=== PATIENT | female | born 1990 | race Caucasian/White ===

== ENCOUNTER 2019-03-30 19:30 | Emergency (ER) | payer OTHER ==
[2019-03-30 19:36] VITALS: BP 128/89; PULSE 81; TEMP 98.4; BMI 27.4
--- NOTE | 2019-03-30 19:38 | PDOC ---
Rapid Medical Evaluation Chief Complaint: Pain Time Seen by Provider: 03/30/19 19:33 Medical Evaluation: 03/30/19 19:33 I have performed a brief in-person evaluation of this patient. The patient presents with a chief complaint of: sent from [facility]/ lower abd pain with radiation- started on and off 2 mos ago, PMD - UTI negative. No relief with 200mg ibuprofen. LMP= NONE X 3 MOS- NORPLANT PLACED Pertinent physical exam findings: I have ordered the following: US pelvis The patient will proceed to the ED for further evaluation. 03/30/19 19:38 Discharge Disposition - Diagnosis Abdominal pain - Referrals - Patient Instructions - Post Discharge Activity
--- NOTE | 2019-03-30 23:04 | PDOC ---
History of Present Illness - General Chief Complaint: Pain Stated Complaint: LOWER STOMACH PAIN Time Seen by Provider: 03/30/19 19:33 - History of Present Illness Initial Comments: 03/30/19 23:04 Ms. Vicente is a 28 yo female w/ no pmh who presents for evaluation of 2 year history of intermittent lower abdominal pain. Patient reports symptoms were mild and unrelated to anything over this time until becoming worse over the last 2 months. Patient reports symptoms have increased since then and have become particularly bad in the last 2 weeks. Patient changed from an IUD to norplant approximately 3 months ago and reports she had 1x of heavier bleeding at that time. Patient was evaluated by PCP 2 weeks ago who tested her for suspected UTI w/ negative result. Patient cannot relate symptoms to anything. Of note, patient's most recent partner of the last 3 months tested positive for gonorrhea recently and she requests testing for this and HIV as well. Does not believe she is at this time. The patient denies chest pain, shortness of breath, headache and dizziness. Denies fever, chills, nausea, vomit, diarrhea and constipation. Denies dysuria, frequency, urgency and hematuria. Past History - Past Medical History Allergies/Adverse Reactions: Allergies Allergy/AdvReac Type Severity Reaction Status Date / Time No Known Allergies Allergy Verified 03/30/19 19:35 Home Medications: Ambulatory Orders NK [No Known Home Medication] 03/30/19 COPD: No - Suicide/Smoking/Psychosocial Hx Smoking History: Never smoked Review of Systems - Review of Systems Comments:: 03/30/19 23:05 GENERAL/CONSTITUTIONAL: No fever or chills. No weakness. HEAD, EYES, EARS, NOSE AND THROAT: No change in vision. No ear pain or discharge. No sore throat. CARDIOVASCULAR: No chest pain or shortness of breath RESPIRATORY: No cough, wheezing, or hemoptysis. GASTROINTESTINAL: +Lower abdominal pain MIRYAM. No nausea, vomiting, diarrhea or constipation. GENITOURINARY: No dysuria, frequency, or change in urination. MUSCULOSKELETAL: No joint or muscle swelling or pain. No neck or back pain. SKIN: No rash NEUROLOGIC: No headache, vertigo, loss of consciousness, or change in strength/ sensation. ENDOCRINE: No increased thirst. No abnormal weight change HEMATOLOGIC/LYMPHATIC: No anemia, easy bleeding, or history of blood clots. ALLERGIC/IMMUNOLOGIC: No hives or skin allergy. *Physical Exam - Vital Signs Last Vital Signs Temp Pulse Resp BP Pulse Ox 98.4 F 81 18 128/89 99 03/30/19 19:33 03/30/19 19:33 03/30/19 19:33 03/30/19 19:33 03/30/19 19:33 - Physical Exam Comments: 03/30/19 23:05 GENERAL: Awake, alert, and fully oriented, in no acute distress HEAD: No signs of trauma, normocephalic, atraumatic EYES: PERRLA, EOMI, sclera anicteric, conjunctiva clear ENT: Auricles normal inspection, hearing grossly normal, nares patent, oropharynx clear without exudates. Moist mucosa NECK: Normal ROM, supple, no lymphadenopathy, JVD, or masses LUNGS: No distress, speaks full sentences, clear to auscultation bilaterally HEART: Regular rate and rhythm, normal S1 and S2, no murmurs, rubs or gallops, peripheral pulses normal and equal bilaterally. ABDOMEN: +MIRYAM lower abdominal TTP. Soft, normoactive bowel sounds. No guarding, no rebound. No masses EXTREMITIES: Normal inspection, Normal range of motion, no edema. No clubbing or cyanosis. NEUROLOGICAL: Cranial nerves II through XII grossly intact. Normal speech, normal gait, no focal sensorimotor deficits SKIN: Warm, Dry, normal turgor, no rashes or lesions noted. VAGINAL: +No CMT, no adnexal tenderness. No blood noted in vaginal vault. Patient noted to have pelvic wall tenderness. ED Treatment Course - LABORATORY CBC & Chemistry Diagram: 03/31/19 00:30 03/31/19 00:30 Medical Decision Making - Medical Decision Making 03/31/19 01:55 Ms. Tomas is a 28 yo female w/ pmh as described who presents for evaluation of lower abdominal pain c/w endometritis vs. appendicitis vs. other acute abdominal process. Patient evaluation started with laboratory evaluation and TVUS / CT Abd/Pelvis for further evaluation. Patient signed out to Dr. Chamberlain for further evaluation. *DC/Admit/Observation/Transfer Diagnosis at time of Disposition: Abdominal pain Qualifiers: Abdominal location: unspecified location Qualified Code(s): R10.9 - Unspecified abdominal pain - Referrals Referrals: Heike Bowling MD [Primary Care Provider] - - Patient Instructions - Post Discharge Activity
[2019-03-30 23:17] LABS: HCG,QUALITATIVE URINE Negative
[2019-03-30 23:18] LABS: EPI CELLS 5.1 /HPF (0-5/HPF); PH,URINE 5.5 (5.0-8.0); URINE APPEARANCE CLEAR; URINE BACTERIA 110.4 /hpf (NEGATIVE); URINE BILIRUBIN NEGATIVE (NEGATIVE); URINE CASTS 5 /lpf (0-8); URINE COLOR YELLOW; URINE GLUCOSE (UA) NEGATIVE (NEGATIVE); URINE KETONE TRACE (NEGATIVE); URINE LEUK ESTERASE TRACE (NEGATIVE); URINE NITRITE NEGATIVE (NEGATIVE); URINE PROTEIN NEGATIVE (NEGATIVE); URINE RBC 1 /hpf (0-4); URINE UROBILINOGEN 0.2 mg/dL (0.2-1.0); URINE WBC 9 /hpf (0-5)
--- NOTE | 2019-03-31 00:47 | PDOC ---
Documentation entered by Tung Arias SCRIBE, acting as scribe for Triny Francis MD. Triny Francis MD: This documentation has been prepared by the Hugo owens Daniel, SCRIBE, under my direction and personally reviewed by me in its entirety. I confirm that the documentation accurately reflects all work, treatment, procedures, and medical decision making performed by me. Attending Attestation - Resident Resident Name: Oswaldo Man - ED Attending Attestation I have performed the following: I have examined & evaluated the patient, The case was reviewed & discussed with the resident, I agree w/resident's findings & plan, Exceptions are as noted - HPI HPI: 03/31/19 00:22 The patient is a 28 year old female with no past medical history here today for evaluation of abdominal pain. The patient reports that she has had 2 years of intermittent lower abdominal pain which started to get worse in the past 3 months and has gotten even worse in the past 2 weeks. She reports that she switched from an IUD to norplant 3 months ago and noticed her worsening abdominal pain around that time. She denies vaginal bleeding or DC, states she has not had her period in 3 months 2/2 norplant. Reports her current partner was just diagnosed with gonorrhea. Patient denies headache, lightheadedness. Denies fever, chills. Denies chest pain, shortness of breath. Denies nausea, vomiting, diarrhea. Allergies: NKA PCP: Nargis Lora - Physicial Exam PE: 03/31/19 00:47 agree with resident exam - Medical Decision Making 03/31/19 00:50 28yo F presents to the ED with progressive lower abd pain x2 years, much worse over last 3 days DDx includes fibroids vs PID vs ovarian cyst vs UTI vs endometriosis vs appendicitis vs diverticulitis Pelvic with no CMT or vaginal DC, however will check gc/ct. +b/l adnexal ttp. Plan for labs, UPT, UA, TVUS, consider CTAP, reassess 03/31/19 02:00 Labs thus far wnl UA, UPT neg US, CTAP pending Case signed out to overnight attending If imaging unrevealing, plan to treat for PID
[2019-03-31 01:35] LABS: BASO % 1.1 % (0-2.0); EOS % 5.3 % (0-4.5); HEMATOCRIT 37.3 % (32.4-45.2); HEMOGLOBIN 12.3 GM/dL (10.7-15.3); LYMPH % 42.2 % (8-40); MCH 31.2 pg (25.7-33.7); MCHC 33.1 g/dl (32.0-36.0); MEAN CELL VOLUME 94.3 fl (80-96); MEAN PLT VOLUME 7.4 fl (7.5-11.1); NEUT % 42.4 % (42.8-82.8); PLATELET COUNT 301 K/MM3 (134-434); RBC 3.96 M/mm3 (3.60-5.2); RDW 12.9 % (11.6-15.6); WHITE BLOOD COUNT 6.9 K/mm3 (4.0-10.0)
--- NOTE | 2019-03-31 01:55 | PDOC ---
*Physical Exam - Vital Signs Last Vital Signs Temp Pulse Resp BP Pulse Ox 98.4 F 81 18 128/89 99 03/30/19 19:33 03/30/19 19:33 03/30/19 19:33 03/30/19 19:33 03/30/19 19:33 ED Treatment Course - LABORATORY CBC & Chemistry Diagram: 03/31/19 00:30 03/31/19 00:30 - ADDITIONAL ORDERS Additional order review: Laboratory Results 03/30/19 23:00 Urine Color Yellow Urine Appearance Clear Urine pH 5.5 Ur Specific [place] 1.033 Urine Protein Negative Urine Glucose (UA) Negative Urine Ketones Trace H Urine Blood Negative Urine Nitrite Negative Urine Bilirubin Negative Urine Urobilinogen 0.2 Ur Leukocyte Esterase Trace Urine WBC (Auto) 9 Urine RBC (Auto) 1 Urine Casts (Auto) 5 U Epithel Cells (Auto) 5.1 Urine Bacteria (Auto) 110.4 Urine HCG, Qual Negative Medical Decision Making - Medical Decision Making 03/31/19 04:02 Patient signed out by Dr. Lam 28 year old woman with progressive lower abd pain x 2 years worsening over the last 3 days. Had pelvic wall tenderness on exam. patient sexually active with partner found to be positive for STD pending CTAP, TVUS, ua, upreg ED Course: imaging negative treat for suspected PID d/c with obgyn and gen surg f/u *DC/Admit/Observation/Transfer Diagnosis at time of Disposition: Abdominal pain Qualifiers: Abdominal location: unspecified location Qualified Code(s): R10.9 - Unspecified abdominal pain - Discharge Dispostion Disposition: HOME Condition at time of disposition: Stable Decision to Admit order: No - Prescriptions Prescriptions: Doxycycline Hyclate 100 mg PO BID #14 tablet Doxycycline Hyclate 100 mg PO BID #14 tablet - Referrals Referrals: Heike Bowling MD [Primary Care Provider] - Dennis Garland MD [Staff Physician] - Deisy Woods MD [Staff Physician] - - Patient Instructions Additional Instructions: You were seen in the ED for complaints of abdominal pain. In the ED you were evaluated with labwork and imaging. Your results were negative. There does not appear to be an acute need for immediate hospitalization. You are advised to follow up with your Primary Care Physician within 1 week. You were given a referral to OBGYN and General Surgery, follow up within 1 week. You were given a prescription for antibiotics to treat a possible pelvic inflammation. Please take medication as indicated. If you or your partner has a known STD, refrain from intercourse until you and your partner are treated. Return to the ED immediately if you experience worsening abdominal pain, fever, nausea, vomiting, vaginal bleeding or discharge. - Post Discharge Activity
[2019-03-31 01:57] LABS: ALBUMIN 3.8 g/dl (3.4-5.0); BILIRUBIN,TOTAL 0.2 mg/dL (0.2-1); CALCIUM 8.5 mg/dL (8.5-10.1); CREATININE 0.7 mg/dL (0.55-1.3); POTASSIUM 3.5 mmol/L (3.5-5.1); TOT PROT 7.8 g/dl (6.4-8.2)
[2019-03-31] MEDS ORDERED: DOXYCYCLINE HYCLATE 100 MG CAPSULE PO ONE ×2 (03:51→04:24)
--- NOTE | 2019-03-31 03:53 | PDOC ---
*Physical Exam - Vital Signs Last Vital Signs Temp Pulse Resp BP Pulse Ox 98.4 F 81 18 128/89 99 03/30/19 19:33 03/30/19 19:33 03/30/19 19:33 03/30/19 19:33 03/30/19 19:33 ED Treatment Course - LABORATORY CBC & Chemistry Diagram: 03/31/19 00:30 03/31/19 00:30 - ADDITIONAL ORDERS Additional order review: Laboratory Results 03/31/19 03/30/19 00:30 23:00 Sodium 139 Potassium 3.5 Chloride 108 H Carbon Dioxide 23 Anion Gap 9 BUN 13 Creatinine 0.7 Est GFR (CKD-EPI)AfAm 136.66 Est GFR (CKD-EPI)NonAf 117.91 Random Glucose 90 Calcium 8.5 Total Bilirubin 0.2 AST 18 ALT 20 Alkaline Phosphatase 96 Total Protein 7.8 Albumin 3.8 Lipase 169 Urine Color Yellow Urine Appearance Clear Urine pH 5.5 Ur Specific [place] 1.033 Urine Protein Negative Urine Glucose (UA) Negative Urine Ketones Trace H Urine Blood Negative Urine Nitrite Negative Urine Bilirubin Negative Urine Urobilinogen 0.2 Ur Leukocyte Esterase Trace Urine WBC (Auto) 9 Urine RBC (Auto) 1 Urine Casts (Auto) 5 U Epithel Cells (Auto) 5.1 Urine Bacteria (Auto) 110.4 Urine HCG, Qual Negative 03/31/19 00:30 RBC 3.96 MCV 94.3 MCHC 33.1 RDW 12.9 MPV 7.4 L Neutrophils % 42.4 L Lymphocytes % 42.2 H Monocytes % 9.0 Eosinophils % 5.3 H Basophils % 1.1 Medical Decision Making - Medical Decision Making 03/31/19 03:53 Patient Name: NONA YOUSIF THIS IS A PRELIMINARY REPORT FROM [facility] DATE OF SERVICE: 2019-03-31 02:47:03 IMAGES: [id number] EXAM: CT abdomen and pelvis with contrast HISTORY: Bilateral lower abdominal pain COMPARISON ultrasound. FINDINGS There is no bowel obstruction or inflammation. Negative for diverticulitis or colitis. Negative for appendicitis. Normal kidneys urinary tracts and urinary bladder. Normal liver. Normal spleen. Normal pancreas. Normal adrenal glands. No obvious gallbladder abnormalities. No free intraperitoneal air or free fluid. Small nonobstructing ventral hernia containing some omentum but no bowel. There is some increased vascularity of the left adnexa. Not seen on the ultrasound. Questionable significance. Osseous structures are intact 03/31/19 04:43 I received pt on signout and she has been having lower abd pain bilaterally. She feels better at this time. CT normal. Pt's sex erwin diagnosed with Gonorrhea. She will be treated for PID and she will follow with [facility]. *DC/Admit/Observation/Transfer Diagnosis at time of Disposition: Abdominal pain Qualifiers: Abdominal location: unspecified location Qualified Code(s): R10.9 - Unspecified abdominal pain - Discharge Dispostion Disposition: HOME Condition at time of disposition: Stable - Prescriptions Prescriptions: Doxycycline Hyclate 100 mg PO BID #14 tablet Doxycycline Hyclate 100 mg PO BID #14 tablet - Referrals Referrals: Dennis Garland MD [Staff Physician] - Deisy Woods MD [Staff Physician] - Heike Bowling MD [Primary Care Provider] - - Patient Instructions Additional Instructions: You were seen in the ED for complaints of abdominal pain. In the ED you were evaluated with labwork and imaging. Your results were negative. There does not appear to be an acute need for immediate hospitalization. You are advised to follow up with your Primary Care Physician within 1 week. You were given a referral to OBGYN and General Surgery, follow up within 1 week. You were given a prescription for antibiotics to treat a possible pelvic inflammation. Please take medication as indicated. If you or your partner has a known STD, refrain from intercourse until you and your partner are treated. Return to the ED immediately if you experience worsening abdominal pain, fever, nausea, vomiting, vaginal bleeding or discharge. - Post Discharge Activity
[2019-03-31] MEDS ORDERED: cefTRIAXone SODIUM 1 GM VIAL ONE (04:24)
== END 2019-03-31 04:55 | disposition home or self-care (01) ==
LOC: JER 19:30
DX: R10.30 Lower abdominal pain, unspecified (principal); Z20.2 Contact with and (suspected) exposure to infections with a predominantly sexual mode of transmission
CPT/HCPCS: 36415; 74177-TC; 76830-TC; 80053; 81003; 83690; 84703; 85025; 87086; 87389; 87491; 87591; 99282-25